=== PATIENT | male | born 1935 | race Caucasian/White ===

== ENCOUNTER 2020-09-10 16:36 | Emergency (ER) | payer MEDICARE, BC ==
[2020-09-10] MEDS ORDERED: Calcium Chloride 1 GM/10 ML Abboject SYRINGE ONE (16:38)
[2020-09-10] MEDS ORDERED: EPINEPHrine 1 MG/10 ML Abboject SYRINGE ONE (16:38)
[2020-09-10] MEDS ORDERED: Sodium Bicarb 50 MEQ/50 ML Abboject 8.4% SYRINGE ONE (16:38)
[2020-09-10] MEDS ORDERED: Rocuronium Bromide 10 MG/ML (10ML VIAL) ONE (16:40)
[2020-09-10] MEDS ORDERED: Scopolamine 1.5 mg/72 hour Patch ONE (18:28)
[2020-09-10] MEDS ORDERED: Famotidine/PF 20 mg/2ml Vial ONE (18:29)
== END 2020-09-10 16:45 | disposition expired ==
LOC: ERS 16:36 → EDBD 16:36 → ERS 16:45
DX: I46.9 Cardiac arrest, cause unspecified (principal); T20.37XA Burn of third degree of neck, initial encounter; T24.302A Burn of third degree of unspecified site of left lower limb, except ankle and foot, initial encounter; T31.7 Burns involving 70-79% of body surface; R57.9 Shock, unspecified; J96.90 Respiratory failure, unspecified, unspecified whether with hypoxia or hypercapnia
CPT/HCPCS: 31500; 92950; 96374; 96375; G0390; J0171; S0028